=== PATIENT | female | born 1975 | race Caucasian/White ===

== ENCOUNTER 2017-08-05 06:44 | Day surgery (SDC) | END 2017-08-05 15:55 | disposition home or self-care (01) ==

== ENCOUNTER 2017-08-29 13:52 | Observation (INO) | END 2017-08-30 17:00 | disposition home or self-care (01) ==

== ENCOUNTER 2017-10-16 06:46 | Day surgery (SDC) | END 2017-10-16 14:36 | disposition home or self-care (01) ==